=== PATIENT | female | born 1985 | race Two or more races ===

== ENCOUNTER → 2022-12-24 | Outpatient (CLI) | payer BC ==
[2022-12-26 14:22] LABS: Aspergillus fumagatus IgE 0.53 kU/L; Birch IgE <0.10 kU/L; Cladosporian herbarum IgE 0.82 kU/L; Cockroach IgE <0.10 kU/L; Egg White IgE 0.17 kU/L; Maple (Box Elder) IgE 0.22 kU/L; Oak IgE <0.10 kU/L; Shrimp IgE <0.10 kU/L
[2022-12-26 14:30] LABS: Crab IgE <0.10 kU/L (<0.10); Crab IgE Class CLASS 0; Egg Yolk IgE Class CLASS 0; Gluten IgE Class CLASS 0/1; Lobster IgE <0.10 kU/L (<0.10); Lobster IgE Class CLASS 0; Onion IgE 0.21 kU/L (<0.10); Onion IgE Class CLASS 0/1; Salmon IgE Class CLASS 0/1; Timothy Grass IgE <0.10 kU/L (<0.10); Timothy Grass IgE Class CLASS 0; Yeast Bakers/Brew IgE 2.62 kU/L (<0.10); Yeast Bakers/Brew IgE Class CLASS 2
[2022-12-26 14:31] LABS: Aureo. pullulans IgE Class CLASS 1; Epicoccum purpurascens Class CLASS 2; Epicoccum purpurascens IgE 1.17 kU/L (<0.10); Johnson Grass IgE Class CLASS 0/1; Mucor racemosus IgE 0.11 kU/L (<0.10); Mucor racemosus IgE Class CLASS 0/1; Rhizopus nigricans IgE 0.44 kU/L (<0.10); Rhizopus nigricans IgE Class CLASS 1
[2022-12-26 14:32] LABS: Candida albicans IgE Class CLASS 2; Coffee IgE <0.10 kU/L (<0.10); Coffee IgE Class CLASS 0; Cottonwood IgE 0.26 kU/L (<0.10); S.rostrata/Helminth Class CLASS 2; S.rostrata/Helminth IgE 1.05 kU/L (<0.10); Walnut Tree IgE Class CLASS 1
[2022-12-26 14:33] LABS: Com. Pigweed IgE Class CLASS 0/1; English Plantain IgE Class CLASS 2; Lamb's Quarter IgE 0.25 kU/L (<0.10); Lamb's Quarter IgE Class CLASS 0/1; Sycamore(Mpl.Lf) IgE Class CLASS 1; White Ash IgE Class CLASS 1
== END | disposition home or self-care (01) ==
LOC: LABWHC1 10:48
PROVIDERS: ATTEND Otolaryngology
DX: L50.0 Allergic urticaria (principal); J30.89 Other allergic rhinitis
CPT/HCPCS: 36415; 82785; 86003

== ENCOUNTER 2023-01-08 22:10 | Emergency (ER) | payer BC ==
[2023-01-08 22:20] VITALS: RESP 18; TEMP 98.4
--- NOTE | 2023-01-08 23:16 | XR ---
EXAM: XR Right Foot Complete, 3 or More Views CLINICAL HISTORY: ITS.REASON XR Reason: pain, laceration TECHNIQUE: Frontal, lateral and oblique views of the right foot. COMPARISON: No relevant prior studies available. FINDINGS: Bones/joints: Unremarkable. No acute fracture. No dislocation. Soft tissues: Radiopaque foreign body in the second toe distal soft tissues measures 1 mm. IMPRESSION: Radiopaque foreign body in the second toe distal soft tissues measures 1 mm.
--- NOTE | 2023-01-09 00:25 | ED ---
Lower Extremity Injury HPI - General Chief Complaint: Extremity Injury, Lower Stated Complaint: Cut foot Time Seen by Provider: 01/08/23 22:20 Source: patient Mode of arrival: wheelchair Limitations: no limitations - History of Present Illness Initial Comments: 37-year-old female presents the emergency department with a right foot laceration. States that she was using a knife when she dropped a knife on her foot. She sustained a laceration to the dorsal aspect of her right foot. She denies any numbness or weakness in the extremity. Bleeding is controlled. She does not take blood thinners. She is up-to-date on her tetanus. She denies any other injuries. No concern for . No other alleviating, precipitating or modifying factors - Related Data Allergies Allergy/AdvReac Type Severity Reaction Status Date / Time No Known Allergies Allergy Verified 01/08/23 22:20 Review of Systems ROS Statement: Those systems with pertinent positive or pertinent negative responses have been documented in the HPI. ROS Other: All systems not noted in ROS Statement are negative. Past Medical History Past Medical History: Asthma History of Any Multi-Drug Resistant Organisms: None Reported Past Surgical History: No Surgical Hx Reported Past Psychological History: No Psychological Hx Reported Smoking Status: Current every day smoker Past Alcohol Use History: None Reported Past Drug Use History: Marijuana General Exam Limitations: no limitations General appearance: alert, in no apparent distress Extremities exam: Present: normal inspection, full ROM, normal capillary refill. Absent: tenderness, pedal edema, joint swelling, calf tenderness Skin exam: Present: warm, dry, other (Laceration noted to the dorsal right foot which measures 3 cm in length. No active bleeding. 2+ DP and PT pulse. Compartments are soft. Refill less than 3 seconds) Course Vital Signs 01/08/23 01/09/23 22:17 01:02 Temperature 98.4 F Pulse Rate 72 76 Respiratory 18 18 Rate Blood Pressure 112/69 100/60 O2 Sat by Pulse 99 96 Oximetry Procedures - Laceration Laceration #1 Consent Obtained: verbal consent Indication: laceration Site: foot Size (cm): 3 Description: linear Depth: simple, single layer Anesthetic Used: lidocaine 1% Anesthesia Technique: local infiltration Amount (mls): 5 Pre-repair: wound explored, irrigated extensively, deep structures intact Type of Sutures: nylon Size of Sutures: 4-0 Number of Sutures: 3 Technique: simple, interrupted Patient Tolerated Procedure: well, no complications Medical Decision Making - Medical Decision Making Was pt. sent in by a medical professional or institution ([facility] Gr[facility], [employer], urgent care, hospital, or [facility]...) When possible be specific @ -No Did you speak to anyone other than the patient for history (EMS, parent, family, police, friend...)? What history was obtained from this source @ -No Did you review nursing and triage notes (agree or disagree)? Why? @ -I reviewed and agree with nursing and triage notes Were old charts reviewed (outside hosp., previous admission, EMS record, old EKG, old radiological studies, urgent care reports/EKG's, [facility] records)? Report findings @ -No old charts were reviewed Differential Diagnosis (chest pain, altered mental status, abdominal pain women, abdominal pain men, vaginal bleeding, weakness, fever, dyspnea, syncope, headache, dizziness, GI bleed, back pain, seizure, CVA, palpatations, mental health, musculoskeletal)? @ -skin Laceration, tendon laceration, retained foreign body, compartment syndrome, fracture EKG interpreted by me (3pts min.). @ -Not completed X-rays interpreted by me (1pt min.). @ -Yes and demonstrates no acute fracture CT interpreted by me (1pt min.). @ -None done U/S interpreted by me (1pt. min.). @ -None done What testing was considered but not performed or refused? (CT, X-rays, U/S, labs)? Why? @ -None What meds were considered but not given or refused? Why? @ -None Did you discuss the management of the patient with other professionals (professionals i.e. ANDRE Grady, [employer], lab, RT, psych nurse, social work nurse, supervisor color making, teacher, customer service officer, shoe parts caser)? Give summary @ -No Was smoking cessation discussed for >3mins.? @ -No Was critical care preformed (if so, how long)? @ -No Were there social determinants of health that impacted care today? How? (Homelessness, low income, unemployed, alcoholism, drug addiction, transportation, low edu. Level, literacy, decrease access to med. care, [place] [facility], rehab)? @ -No Was there de-escalation of care discussed even if they declined (Discuss DNR or withdrawal of care, Hospice)? DNR status @ -No What co-morbidities impacted this encounter? (DM, HTN, Smoking, COPD, CAD, Cancer, CVA, ARF, Chemo, Hep., AIDS, mental health diagnosis, sleep apnea, morbid obesity)? @ -None Was patient admitted / discharged? Hospital course, mention meds given and route, prescriptions, significant lab abnormalities, going to OR and other pe rtinent info. @ -Upon arrival patient was placed into room 31. Thorough history and physical exam was performed. I did perform laceration repair after x-ray was performed and demonstrated no acute fracture. She does have a possible foreign body visualized on x-ray however this is at a site far from the laceration and does not appear present on physical exam. Patient is instructed to keep the sutures in place for approximately 10 days. Should follow up with her primary care doctor or return to the emergency department for removal. Keep the area clean and dry. Do not soak the foot. Alternate Motrin and Tylenol for pain control and return for any signs of infection. Patient was agreeable to this and she was discharged home ambulatory in stable condition Undiagnosed new problem with uncertain prognosis? @ -No Drug Therapy requiring intensive monitoring for toxicity (Heparin, Nitro, Insulin, Cardizem)? @ -No Were any procedures done? @ -Foot laceration repair Diagnosis/symptom? @ -Acute laceration right foot Acute, or Chronic, or Acute on Chronic? @ -Acute Uncomplicated (without systemic symptoms) or Complicated (systemic symptoms)? @ -uncomplicated Side effects of treatment? @ -No Exacerbation, Progression, or Severe Exacerbation? @ -No Poses a threat to life or bodily function? How? (Chest pain, USA, VT, pneumonia, PE, COPD, DKA, ARF, appy, cholecystitis, CVA, Diverticulitis, Homicidal, Suicidal, threat to staff... and all critical care pts) @ -No Disposition Clinical Impression: Foot laceration Disposition: HOME SELF-CARE Condition: Stable Instructions (If sedation given, give patient instructions): Care For Your Stitches (ED), Laceration (ED) Additional Instructions: Please have your stitches removed in 10 days. Keep the area clean. Do not submerge. Take Tylenol and Motrin for pain. You may return to the emergency department for stitch removal or you may follow-up with your primary care doctor Is patient prescribed a controlled substance at d/c from ED?: No Referrals: Khalif Melchor MD [Primary Care Provider] - 1-2 days Time of Disposition: 00:24
[2023-01-09 01:03] VITALS: BP 100/60; PULSE 76
== END 2023-01-09 01:03 | disposition home or self-care (01) ==
LOC: EC 22:10
DX: S91.311A Laceration without foreign body, right foot, initial encounter (principal); J45.909 Unspecified asthma, uncomplicated; F17.200 Nicotine dependence, unspecified, uncomplicated; F12.90 Cannabis use, unspecified, uncomplicated; W26.0XXA Contact with knife, initial encounter
CPT/HCPCS: 12002; 99283

== ENCOUNTER → 2024-08-09 | Outpatient (CLI) | payer BC ==
--- NOTE | 2024-08-09 17:39 | MM ---
Reason for Exam: Screening (asymptomatic). Baseline mammogram. Patient History: Menarche at age 15. Patient has no children. Premenopausal. Last menstrual period: 07/23/2024 Risk Values: Laila 5 year model risk: 0.4%. NCI Lifetime model risk: 11.3%. Prior Study Comparison: Patient's first Mammogram. Tissue Density: The breasts are heterogeneously dense, which may obscure small masses. Findings: Analyzed By CAD. Right breast middle depth, focal asymmetry medially and superiorly for which spot compression is recommended. This may represent superimposition shadow. Otherwise, no suspicious microcalcification or other discrete abnormality is seen. Overall Assessment: Incomplete: need additional imaging evaluation, BI-RAD 0 Management: Special View Mammogram of the right breast. [facility] will attempt to contact patient to return for supplemental views and ultrasound if indicated. [facility], , 08/09/2024 5:36 PM. Electronically signed and approved by: Isidoro Villalpando M.D. Radiologist
== END | disposition home or self-care (01) ==
LOC: RADMAMWWP 15:46
PROVIDERS: ATTEND Family Medicine
DX: Z12.31 Encounter for screening mammogram for malignant neoplasm of breast (principal); R92.333 Mammographic heterogeneous density, bilateral breasts
CPT/HCPCS: 77067

== ENCOUNTER → 2024-08-14 | Outpatient (CLI) | payer BC ==
--- NOTE | 2024-08-14 15:27 | MM ---
Reason for Exam: Additional evaluation requested from abnormal screening. Last screening mammogram was performed less than 1 month ago. Patient History: Menarche at age 15. Patient has no children. Premenopausal. Risk Values: Laila 5 year model risk: 0.4%. NCI Lifetime model risk: 11.3%. Prior Study Comparison: 08/09/2024 Bilateral MG screening mammo w CAD, [facility]. Tissue Density: Right: The breasts are heterogeneously dense, which may obscure small masses. Findings: Analyzed By CAD. Nodular density at 3:00 position right breast proximally 4 cm from the nipple measuring 5 mm. Ultrasound is recommended. Overall Assessment: Incomplete: need additional imaging evaluation, BI-RAD 0 Management: Diagnostic Breast Ultrasound of the right breast. . Results were given to the patient verbally at the time of exam. Patient should continue monthly self-breast exams. A clinical breast exam by your physician is recommended on an annual basis. This exam should not preclude additional follow-up of suspicious palpable abnormalities. Note on Laila scores and lifetime risk: 1. A Laila score greater than 3% is considered moderate risk. If this is the case, consider specialist referral to assess eligibility for a risk reducing agent. 2. If overall lifetime risk for the development of breast cancer is 20% or higher, the patient may qualify for future screening with alternating mammogram and breast MRI. [facility], , 08/14/2024 3:24 PM. Electronically signed and approved by: Melecio Perez M.D. Radiologis
--- NOTE | 2024-08-14 15:42 | USB ---
Reason for Exam: Additional evaluation requested from abnormal screening. Patient History: Menarche at age 15. Patient has no children. Premenopausal. Risk Values: Laila 5 year model risk: 0.4%. NCI Lifetime model risk: 11.3%. Technique: Method: Targeted. Prior Study Comparison: 08/09/2024 Bilateral MG screening mammo w CAD, [facility]. Findings: The medial section of the breast of the right breast and the retroareolar of the right breast were scanned. Ultrasound of the right 3:00 position demonstrates a 6 x 5 x 2 mm simple cyst. No solid masses present. Overall Assessment: Benign, BI-RAD 2 Management: Screening Mammogram of both breasts in 1 year. A clinical breast exam by your physician is recommended on an annual basis and results should be correlated with mammographic findings. This exam should not preclude additional follow-up of suspicious palpable abnormalities. Results were given to the patient verbally at the time of exam. [facility], , 08/14/2024 3:37 PM. Electronically signed and approved by: Melecio Perez M.D. Radiologis
== END | disposition home or self-care (01) ==
LOC: RADMAMWWP 14:55
PROVIDERS: ATTEND Family Medicine
DX: R92.8 Other abnormal and inconclusive findings on diagnostic imaging of breast (principal); R92.331 Mammographic heterogeneous density, right breast
CPT/HCPCS: 77061; 77065